=== PATIENT | female | born 1960 | race Caucasian/White ===

== ENCOUNTER → 2016-11-18 | Outpatient (CLI) | payer BC ==
--- NOTE | 2016-11-18 13:48 | RAD ---
Indication left flank pain for one month. Hematuria. Noncontrast imaging through the abdomen and pelvis was performed. Examination was tailored for the detection of renal and/or ureteral calculi. No IV or gastrointestinal contrast was administered. Note is made of a previous examination 10/03/2007. The lung bases are clear. There is a small hiatus hernia. The liver and spleen appear unremarkable. The gallbladder is grossly normal. No pancreatic abnormality is seen. There are no adrenal masses. The kidneys appear normal. No renal calculi are seen. There is, however, a 2 to 3 mm calculus along the course of the midportion of the left ureter. This appears to be vascular calcification. A definite calcification is not seen along the course of either ureter. There is no hydronephrosis. There are several calcifications in the pelvis compatible with phleboliths. An acute finding within the abdomen is not seen. No acute finding is apparent in the pelvis. IMPRESSION: No acute finding seen in the abdomen or pelvis PQRS Compliance Statement: One or more of the following individualized dose reduction techniques were utilized for this examination: 1. Automated exposure control 2. Adjustment of the mA and/or kV according to patient size 3. Use of iterative reconstruction technique
== END | disposition home or self-care (01) ==
LOC: CT 12:49
PROVIDERS: ATTEND Family Medicine
DX: N20.1 Calculus of ureter (principal); K44.9 Diaphragmatic hernia without obstruction or gangrene; N30.00 Acute cystitis without hematuria; R31.9 Hematuria, unspecified
CPT/HCPCS: 74176

== ENCOUNTER 2018-10-30 22:11 | Emergency (ER) | payer BC ==
[~2018-10-30] VITALS: Ht 165.1 cm; Wt 81.6 kg
[2018-10-30 22:41] VITALS: BP 121/52
--- NOTE | 2018-10-30 23:39 | RAD ---
Three-view bilateral knee radiographs 10/30/2018 CLINICAL HISTORY: Fall yesterday with bilateral knee pain. AP, oblique and lateral digital radiographs of both knees were obtained. No fracture or dislocation of either knee is seen. Mild degenerative changes are seen involving predominantly the medial and patellofemoral compartments of both knees. IMPRESSION: No fracture or dislocation of either knee is seen. Electronically signed by: Milan Collins MD (10/30/2018 11:36 PM) [facility]
[2018-10-30] MEDS ORDERED: TRAM50TA PO (23:47)
--- NOTE | 2018-10-30 23:47 | PHYS DOC ---
Past History Past Medical History: Depression, GERD, Hypertension, Migraines Past Surgical History: Hysterectomy Alcohol Use: None Drug Use: None Adult General Chief Complaint Chief Complaint: KNEE INJURY HPI HPI Patient is a 58-year-old female who presents with complaint of bilateral knee pain after she fell off of bleachers when she became dizzy. Patient indicates that she has a chronic history of dizziness. Patient sustained abrasions to both knees. Patient states that it is painful to bear weight at this time. She rates pain as moderate. She denies any head injury or loss of consciousness.[] Review of Systems Review of Systems Constitutional: Denies fever or chills [] Respiratory: Denies cough or shortness of breath [] Cardiovascular: No additional information not addressed in HPI [] Musculoskeletal: Positive bilateral knee pain [] Integument: Positive abrasions both knees[] Neurologic: Denies headache, focal weakness or sensory changes. Positive chronic dizziness. [] Allergies Allergies Allergies Coded Allergies Type Severity Reaction Last Updated Verified No Known Drug Allergies 10/30/18 No Physical Exam Physical Exam Constitutional: Well developed, well nourished, no acute distress, non-toxic appearance. [] Cardiovascular:Heart rate regular rhythm, no murmur [] Lungs & Thorax: Bilateral breath sounds clear to auscultation [] Skin: Warm, dry. There are small to moderate-sized abrasions noted to both knees [] Extremities: Bilateral knees demonstrate abrasions along with tenderness to palpation overlying both patellae. Range of motion of both knees is limited due to reported pain [] Neurologic: Alert and oriented X 3, no focal deficits noted. [] Current Patient Data Vital Signs Vital Signs Date Time Temp Pulse Resp B/P (MAP) Pulse Ox O2 Delivery O2 Flow Rate FiO2 10/30/18 22:41 98.3 70 16 94 Room Air EKG EKG [] Radiology/Procedures Radiology/Procedures [] Impressions: X-ray of bilateral knees demonstrates no acute bony abnormalities. Course & Med Decision Making Course & Med Decision Making Pertinent Labs and Imaging studies reviewed. (See chart for details) [] Dragon Disclaimer Dragon Disclaimer This electronic medical record was generated, in whole or in part, using a voice recognition dictation system. Departure Departure: Impression: Primary Impression: Knee contusion Additional Impression: Abrasion of knee, bilateral Disposition: 01 HOME, SELF-CARE Condition: STABLE Referrals: MICHELE MARCOS PAC (PCP) Patient Instructions: Abrasions, Contusion Scripts Tramadol Hcl (TRAMADOL HCL) 50 Mg Tablet 50 MG PO PRN Q6HRS PRN for PAIN, #12 TAB Prov: AVIS GARCIA Jr. DO 10/30/18 Problem Qualifiers Primary Impression: Knee contusion Encounter type: initial encounter Laterality: unspecified laterality Q ualified Codes: S80.00XA - Contusion of unspecified knee, initial encounter AVIS GARCIA Jr. DO October 30, 2018 23:47
[2018-10-31] MEDS ORDERED: START PACK - traMADol 1 STARTPACK TABLET PO ONE
== END 2018-10-31 | disposition home or self-care (01) ==
LOC: ER 22:19
DX: S80.02XA Contusion of left knee, initial encounter (principal); S80.01XA Contusion of right knee, initial encounter; R42 Dizziness and giddiness; F32.9 Major depressive disorder, single episode, unspecified; K21.9 Gastro-esophageal reflux disease without esophagitis; I10 Essential (primary) hypertension; G43.909 Migraine, unspecified, not intractable, without status migrainosus; W17.89XA Other fall from one level to another, initial encounter; Y93.89 Activity, other specified; Y92.89 Other specified places as the place of occurrence of the external cause; Y99.8 Other external cause status
CPT/HCPCS: 73562; 99284

== ENCOUNTER → 2018-11-17 | Outpatient (CLI) | payer BC ==
[2018-10-30 22:41] VITALS: BP 121/52
[~2018-11-17] MED LIST: TRAM50TA PO
--- NOTE | 2018-11-17 18:12 | RAD ---
EXAM: Carotid Doppler sonogram. HISTORY: Dizziness and giddiness. TECHNIQUE: De La Cruz scale and color Doppler sonographic evaluation of the neck with spectral waveform analysis was performed and static images are submitted for review. FINDINGS: There is minimal atherosclerotic plaque within the carotid bulbs. The peak systolic velocity within the right common carotid artery is 79 cm/sec. The peak systolic velocity within the right internal carotid artery is 78 cm/sec and the end diastolic velocity within the right internal carotid artery is 31 cm/sec. The right ICA/CCA ratio is 0.99. The peak systolic velocity within the left common carotid artery is 92 cm/sec. The peak systolic velocity within the left internal carotid artery is 88 cm/sec and the end diastolic velocity within the left internal carotid artery is 29 cm/sec. The left ICA/CCA ratio is 0.96. There is normal antegrade flow within both vertebral arteries. IMPRESSION: No Doppler evidence of hemodynamically significant stenosis. PQRS Compliance Statement - Stenosis calculations for CT, MR and conventional angiography are based upon measurement of the distal ICA diameter in accordance with the NASCET methodology. Stenosis calculations for carotid ultrasound studies are derived from validated velocity criteria which are known to correlate with the NASCET methodology. Electronically signed by: Carole Hopkins MD (11/17/2018 6:09 PM) [facility]
== END | disposition home or self-care (01) ==
LOC: US 14:37
PROVIDERS: ATTEND Physician Assistant
DX: I70.8 Atherosclerosis of other arteries (principal)
CPT/HCPCS: 93880

== ENCOUNTER → 2020-10-17 | Outpatient (CLI) | payer BC ==
--- NOTE | 2020-10-20 18:06 | RAD ---
DATE: 10/17/2020 EXAM: DIGITAL SCREEN BILAT W/CAD HISTORY: Screening COMPARISON: 12/19/2027 This study was interpreted with the benefit of Computerized Aided Detection (CAD). Breast Density: SCATTERED The breast parenchyma shows scattered fibroglandular densities. Breast parenchyma level B. FINDINGS: No mass, suspicious calcification, or architectural distortion in either breast. IMPRESSION: No evidence of malignancy. BI-RADS CATEGORY: 1 NEGATIVE RECOMMENDED FOLLOW-UP: 12M 12 MONTH FOLLOW-UP PQRS compliance statement: Patient information was entered into a reminder system with a target due date for the next mammogram. Mammography is a sensitive method for finding small breast cancers, but it does not detect them all and is not a substitute for careful clinical examination. A negative mammogram does not negate a clinically suspicious finding and should not result in delay in biopsying a clinically suspicious abnormality. "Our facility is accredited by the [employer] Mammography Program."
== END ==
LOC: MAMMO 08:41
PROVIDERS: ATTEND Physician Assistant
DX: Z12.31 Encounter for screening mammogram for malignant neoplasm of breast (principal)
CPT/HCPCS: 77067